=== PATIENT | female | born 1975 | race Caucasian/White ===

== ENCOUNTER 2024-04-03 18:51 | Emergency (ER) | payer OTHER ==
[2024-04-03] MEDS: Doxycycline 100 MG Cap PO STA (21:13)
[2024-04-03] MEDS: Amoxicillin/Clavulanate K 875-125 MG Tab PO STA (21:13)
== END 2024-04-03 21:23 | disposition home or self-care (01) ==
LOC: MW.ED 18:51
DX: J18.9 Pneumonia, unspecified organism (principal); I10 Essential (primary) hypertension; Z75.8 Other problems related to medical facilities and other health care; Z79.51 Long term (current) use of inhaled steroids; Z79.899 Other long term (current) drug therapy
CPT/HCPCS: 87428; 99283; A9270

== ENCOUNTER 2024-10-18 12:25 | Emergency (ER) | payer OTHER ==
[2024-10-18 12:56] LABS: MEAN PLATELET VOLUME 10.0 fL (9.4-12.3); NRBC ABSOLUTE 0.00 K/uL (0.00-0.02); NRBC PERCENT 0.0 /100WBC (0.0-0.2); PLATELET COUNT,PLT 140 K/uL (150-400); RED BLOOD CELL COUNT 4.43 M/uL (4.10-5.30); WHITE BLOOD CELL COUNT,WBC 9.73 K/uL (3.9-11.3)
[2024-10-18 13:14] LABS: INR 0.98 (0.86-1.11)
[2024-10-18 13:19] LABS: EOSINOPHILS ABSOLUTE MAN 0.10 K/uL (0.00-0.45); EOSINOPHILS PERCENT MAN 1 % (0-6); LYMPHOCYTES ABSOLUTE MAN 5.55 K/uL (1.00-4.80); LYMPHOCYTES PERCENT MAN 57 % (24-44); MONOCYTES ABSOLUTE MAN 0.88 K/uL (0.00-0.80); MONOCYTES PERCENT MAN 9 % (0-8); SEG NEUTROPHILS ABSOLUTE MAN 3.21 K/uL (1.80-7.70); SEG NEUTROPHILS PERCENT MAN 33 % (41-71)
[2024-10-18 13:51] LABS: APPEARANCE,URINE SLT CLOUDY; GLUCOSE,URINE NEGATIVE (NEGATIVE); OCCULT BLOOD,URINE NEGATIVE (NEGATIVE)
[2024-10-18 13:58] LABS: A/G RATIO 1.0 (0.9-1.6); ALANINE AMINOTRANSFERASE,ALT 78.0 IU/L (14-63); ASPARTATE AMNIOTRANSFERASE,AST 58.0 IU/L (15-37); BILIRUBIN TOTAL 0.3 mg/dL (0.2-1.0); BLOOD UREA NITROGEN,BUN 8.0 mg/dL (7.0-18.0); CARBON DIOXIDE,CO2 26.3 mmol/L (21.0-32.0); CHLORIDE,CL 103.0 mmol/L (98-107); CREATININE 1.1 mg/dL (0.6-1.0); EST CRCL DRUG DOSING (CG) 52.25 mL/min; GLUCOSE RANDOM 113.0 mg/dL (74-106); POTASSIUM,K 4.4 mmol/L (3.5-5.1); PRO B-TYPE NATRIUR PEPT,BNPPRO 18.0 pg/mL (0-125); PROTEIN TOTAL,TP 6.3 g/dL (6.4-8.2); SODIUM,NA 139.0 mmol/L (136-145)
[2024-10-18 14:02] LABS: EPITHELIAL CELLS,URINE MODERATE (NONE-FEW)
[2024-10-18] MEDS: Iopamidol 755 MG/ML 500 ML Multipack Bottle IVPUSH STA (14:06)
[2024-10-18 14:16] LABS: ESTIMATED GFR 61.0 mL/min (>60)
== END 2024-10-18 15:14 | disposition home or self-care (01) ==
LOC: MW.ED 12:25
DX: R06.02 Shortness of breath (principal); I10 Essential (primary) hypertension; Z79.899 Other long term (current) drug therapy; Z75.3 Unavailability and inaccessibility of health-care facilities
CPT/HCPCS: 36415; 71045; 71275; 80053; 81001; 83880; 84484; 85025; 85379; 85610; 93005; 99285; J7620; Q9967; 99284; A9270-GY